=== PATIENT | male | born 1955 | race Asian ===

== ENCOUNTER 2023-04-28 14:07 | Inpatient (IN) | payer OTHER ==
[~2023-04-28] VITALS: Ht 170.2 cm; Wt 77.1 kg
[2023-04-28 14:25] VITALS: BP 86/46; PULSE 69; RESP 18; TEMP 97.8; O2SAT 95
[2023-04-28] MEDS: NACL 0.9% 1,000 ML IV ONE (15:05)
[2023-04-28] MEDS ORDERED: cefTRIAXone 1,000 MG VIAL ONE (15:11)
[2023-04-28] MEDS: NACL 0.9% 1,000 ML IV SCH (15:16)
[2023-04-28 15:21] LABS: BASOPHILS % (AUTO) 0.4 % (0.0-2.0); HEMATOCRIT 40.1 % (36-52); HEMOGLOBIN 13.5 g/dL (12.0-18.0); MEAN CORPUSCULAR HEMOGLOBIN 31 pg (27-31); MEAN CORPUSCULAR HGB CONC 34 g/dL (33-37); MEAN CORPUSCULAR VOLUME 91.9 fL (80-94); MONOCYTES # (AUTO) 1.7 K/uL (0.8-1.0); MONOCYTES % (AUTO) 18.6 % (1.7-9.3); NEUTROPHILS # (AUTO) 6.3 K/uL (1.8-7.7); PLATELET COUNT (AUTO) 184 K/uL (140-450); RED BLOOD CELL COUNT(AUTO) 4.36 MIL/uL (4.20-6.10); RED CELL DISTRIBUTION WIDTH 14.3 % (11.6-13.7)
[2023-04-28 15:36] LABS: ANION GAP 13.8 (8-16); CALCIUM 7.8 mg/dL (8.5-10.1); CARBON DIOXIDE 23.1 mmol/L (21-32); POTASSIUM 4.9 mmol/L (3.5-5.1)
[2023-04-28 15:41] LABS: INR 1.07 (0.8-1.2); PARTIAL THROMBOPLASTIN TIME 35.4 secs (22-35.6); PROTHROMBIN TIME 11.2 secs (10.8-13.4)
[2023-04-28 15:43] LABS: ALANINE AMINOTRANSFERASE 22 U/L (12-78); ALBUMIN 1.6 g/dL (3.4-5.0); ALKALINE PHOSPHATASE 40 U/L (50-136); ASPARTATE AMINOTRANSFERASE 25 U/L (15-37); BILIRUBIN,DIRECT 0.1 mg/dL (0.0-0.3); CREATINE KINASE, TOTAL 337 U/L (39-308); TOTAL BILIRUBIN 0.2 mg/dL (0.0-1.0); TOTAL PROTEIN, SERUM 3.9 g/dL (6.4-8.2)
[2023-04-28 16:08] LABS: APPEARANCE,URINE CLEAR (CLEAR); BILIRUBIN,URINE NEGATIVE (NEGATIVE); BLOOD, URINE 1+ (NEGATIVE); COLOR,URINE YELLOW (YELLOW); LEUKOCYTE ESTERASE ,URINE NEGATIVE (NEGATIVE); NITRITE, URINE NEGATIVE (NEGATIVE); PROTEIN,URINE TRACE (NEGATIVE); UGLUCOSE NEGATIVE (NEGATIVE); UROBILINOGEN,URINE 0.2 EU/dL (0.2 - 1)
[2023-04-28 16:19] LABS: RBC,URINE 0-5 /HPF (0-5)
[2023-04-28 16:20] LABS: BACTERIA,URINE 0-2 /HPF (None Seen); SQUAMOUS EPITHELIAL CELL,UR 0-3 (FEW) /LPF (0-3 (FEW)); WBC,URINE 0 /HPF (0-5)
[2023-04-28 16:21] LABS: MUCUS,URINE None Seen /LPF (None Seen)
[2023-04-28] MEDS: ASPIRIN 325 MG TAB PO ONE (19:50)
[2023-04-28] MEDS: MORPHINE SULFATE 4 MG/ML SYR IVP ONE (20:16)
[2023-04-28] MEDS ORDERED: LIP80 PO (20:44)
[2023-04-28] MEDS ORDERED: METO25TE2 PO (20:44)
[2023-04-28] MEDS ORDERED: ASPI-1749 PO (20:44)
[2023-04-28] MEDS ORDERED: CLOP75TA55 PO (20:44)
[2023-04-28] MEDS ORDERED: LISI5TAB18 PO (20:44)
[2023-04-28] MEDS ORDERED: HEPARIN PER PHARMACY MC PRN ×3 (21:10→23:00)
[2023-04-28] MEDS ORDERED: hePARIN / DEXT 5% PREMIX 250 ML IV SCH (23:00)
[2023-04-28 23:34] VITALS: PULSE 88
[2023-04-28] MEDS: hePARIN / DEXT 5% PREMIX 250 ML IV PRN (23:58)
[2023-04-29] MEDS: NACL 0.9% 1,000 ML IV SCH (00:16)
[2023-04-29] MEDS: ATORVASTATIN 80 MG TAB ONE (00:42)
[2023-04-29] MEDS: ATORVASTATIN 80 MG TAB PO ONE (00:50)
[2023-04-29 01:51] VITALS: PULSE 93; RESP 19; O2SAT 94
[2023-04-29 04:00] VITALS: BP 113/79; PULSE 113; PULSE 116; RESP 23; TEMP 99.6; O2SAT 95
[2023-04-29 06:36] LABS: ANION GAP 17.2 (8-16); CALCIUM 7.6 mg/dL (8.5-10.1); CARBON DIOXIDE 17.9 mmol/L (21-32); CREATININE 1.1 mg/dL (0.6-1.3); POTASSIUM 4.1 mmol/L (3.5-5.1)
[2023-04-29 07:31] LABS: HEMATOCRIT 40.8 % (36-52); HEMOGLOBIN 12.3 g/dL (12.0-18.0); MEAN CORPUSCULAR HEMOGLOBIN 28 pg (27-31); MEAN CORPUSCULAR HGB CONC 30 g/dL (33-37); MEAN CORPUSCULAR VOLUME 92.9 fL (80-94); PLATELET COUNT (AUTO) 191 K/uL (140-450); RED BLOOD CELL COUNT(AUTO) 4.39 MIL/uL (4.20-6.10); RED CELL DISTRIBUTION WIDTH 14.8 % (11.6-13.7); WHITE BLOOD COUNT (AUTO) 6.6 K/uL (4.8-10.8)
[2023-04-29 08:00] VITALS: BP 95/52; PULSE 108; PULSE 68; PULSE 98; RESP 18; RESP 20; TEMP 99.9; O2SAT 95; O2SAT 99
[2023-04-29 08:14] LABS: BASOPHILS % (MANUAL) 0 % (0-2); BLASTS, MANUAL % 0 % (0-0); EOSINOPHILS % (MANUAL) 2 % (0-4); LYMPHOCYTES % (MANUAL) 11 % (20-46); METAMYELOCYTES % 0 % (0-0); MONOCYTES % (MANUAL) 7 % (5-12); MYELOCYTES % 0 % (0-0); OTHER CELLS,MANUAL % 0 (0-0); PROMYELOCYTES % 0 % (0-0)
[2023-04-29 08:15] LABS: PLATELET ESTIMATE ADEQUATE
[2023-04-29] MEDS: ATORVASTATIN 80 MG TAB PO SCH (08:48)
[2023-04-29] MEDS: ASPIRIN 81 MG TAB.CHEW PO ONE (08:48)
[2023-04-29 12:00] VITALS: BP 98/59; PULSE 101; PULSE 94; RESP 18; TEMP 99.3; O2SAT 95
[2023-04-29] MEDS ORDERED: ONDANSETRON 4 MG/2 ML VIAL IVP PRN (12:25)
[2023-04-29] MEDS ORDERED: MORPHINE SULFATE 2 MG/ML SYR IVP PRN ×2 (12:25)
[2023-04-29] MEDS ORDERED: NITROGLYCERIN 0.4 MG TAB SL PRN (12:25)
[2023-04-29] MEDS ORDERED: ACETAMINOPHEN 325 MG TAB PO PRN (12:25)
[2023-04-29 13:04] LABS: CHOL/HDL RATIO 2.8 (1-4.5)
[2023-04-29] MEDS: lisinopriL 5 MG TAB PO SCH (13:44)
[2023-04-29 16:00] VITALS: BP 105/67; PULSE 93; PULSE 98; RESP 18; TEMP 99.2; O2SAT 95
[2023-04-29] MEDS: PANTOPRAZOLE 40 MG INJ VIAL IVP SCH (18:59)
[2023-04-29] MEDS: lisinopriL 5 MG TAB ONE (18:59)
[2023-04-29 20:00] VITALS: BP 125/74; PULSE 103; PULSE 105; RESP 18; TEMP 97.6; O2SAT 96
[2023-04-29] MEDS: ZOLPIDEM 5 MG TAB PO PRN (20:23)
[2023-04-29] MEDS: METOPROLOL 25 MG TAB PO SCH (20:23)
[2023-04-30] VITALS (7 sets, daily range): BP systolic 101–128; BP diastolic 60–77; PULSE 76–99; RESP 18–22; TEMP 97.7–99; O2SAT 92–97
[2023-04-30 05:59] LABS: BASOPHILS % (AUTO) 0.6 % (0.0-2.0); EOSINOPHILS % (AUTO) 0.5 % (0.0-4.0); HEMATOCRIT 38.2 % (36-52); LYMPHOCYTES # (AUTO) 1.6 K/uL (2.0-11.5); LYMPHOCYTES % (AUTO) 29.1 % (20.5-51.1); MEAN CORPUSCULAR HEMOGLOBIN 31 pg (27-31); MEAN CORPUSCULAR HGB CONC 34 g/dL (33-37); MEAN CORPUSCULAR VOLUME 90.2 fL (80-94); MONOCYTES # (AUTO) 0.9 K/uL (0.8-1.0); MONOCYTES % (AUTO) 15.9 % (1.7-9.3); NEUTROPHILS % (AUTO) 53.9 % (42.2-75.2); PLATELET COUNT (AUTO) 181 K/uL (140-450); RED BLOOD CELL COUNT(AUTO) 4.23 MIL/uL (4.20-6.10); RED CELL DISTRIBUTION WIDTH 14.2 % (11.6-13.7); WHITE BLOOD COUNT (AUTO) 5.6 K/uL (4.8-10.8)
[2023-04-30 06:29] LABS: ALBUMIN 2.6 g/dL (3.4-5.0); ANION GAP 14.3 (8-16); CALCIUM 7.9 mg/dL (8.5-10.1); CARBON DIOXIDE 20.2 mmol/L (21-32); POTASSIUM 3.5 mmol/L (3.5-5.1); TOTAL BILIRUBIN 0.3 mg/dL (0.0-1.0); TOTAL PROTEIN, SERUM 6.4 g/dL (6.4-8.2)
[2023-04-30] MEDS: ECOTRIN 81 MG TABEC PO SCH (09:27)
[2023-04-30] MEDS: ENOXAPARIN 40 MG/0.4 ML SYR SUBQ SCH (09:29)
[2023-04-30] MEDS: ALBUTEROL SULFATE/IPRATROPIU 3 ML SOL IH SCH (21:44)
[2023-05-01] VITALS (8 sets, daily range): BP systolic 105–125; BP diastolic 59–75; PULSE 79–94; RESP 18–20; TEMP 98.2–98.6; O2SAT 92–97
[2023-05-01 05:18] LABS: BASOPHILS % (AUTO) 0.5 % (0.0-2.0); EOSINOPHILS # (AUTO) 0.1 K/uL (0-0.4); EOSINOPHILS % (AUTO) 1.1 % (0.0-4.0); HEMATOCRIT 38.6 % (36-52); HEMOGLOBIN 13.3 g/dL (12.0-18.0); LYMPHOCYTES # (AUTO) 1.8 K/uL (2.0-11.5); LYMPHOCYTES % (AUTO) 33.1 % (20.5-51.1); MEAN CORPUSCULAR HEMOGLOBIN 31 pg (27-31); MEAN CORPUSCULAR HGB CONC 35 g/dL (33-37); MEAN CORPUSCULAR VOLUME 89.3 fL (80-94); MONOCYTES # (AUTO) 1.1 K/uL (0.8-1.0); MONOCYTES % (AUTO) 19.6 % (1.7-9.3); NEUTROPHILS # (AUTO) 2.5 K/uL (1.8-7.7); NEUTROPHILS % (AUTO) 45.7 % (42.2-75.2); PLATELET COUNT (AUTO) 181 K/uL (140-450); RED BLOOD CELL COUNT(AUTO) 4.32 MIL/uL (4.20-6.10); RED CELL DISTRIBUTION WIDTH 14.1 % (11.6-13.7); WHITE BLOOD COUNT (AUTO) 5.4 K/uL (4.8-10.8)
[2023-05-01 05:56] LABS: ALBUMIN 2.5 g/dL (3.4-5.0); ANION GAP 12.4 (8-16); CALCIUM 7.6 mg/dL (8.5-10.1); CARBON DIOXIDE 23.8 mmol/L (21-32); CREATININE 0.9 mg/dL (0.6-1.3); POTASSIUM 3.2 mmol/L (3.5-5.1); TOTAL BILIRUBIN 0.3 mg/dL (0.0-1.0); TOTAL PROTEIN, SERUM 7.1 g/dL (6.4-8.2)
[2023-05-01] MEDS: POTASSIUM CHLORIDE 10 MEQ TABER PO SCH (09:27)
[2023-05-01] MEDS ORDERED: AZIT250T4 PO (13:34)
== END 2023-05-01 16:26 | disposition home or self-care (01) | DRG 682 ==
LOC: MED 14:07 → MTU 22:23
PROVIDERS: ADMIT Student in an Organized Health Care Education/Training Program; ATTEND Student in an Organized Health Care Education/Training Program
DX: N17.0 Acute kidney failure with tubular necrosis (principal); G93.41 Metabolic encephalopathy; I21.A1 Myocardial infarction type 2; E86.0 Dehydration; J06.9 Acute upper respiratory infection, unspecified; E78.5 Hyperlipidemia, unspecified; I25.10 Atherosclerotic heart disease of native coronary artery without angina pectoris; I10 Essential (primary) hypertension; Z86.73 Personal history of transient ischemic attack (TIA), and cerebral infarction without residual deficits; Z79.82 Long term (current) use of aspirin; Z79.899 Other long term (current) drug therapy
CPT/HCPCS: 36415; 70450; 71045; 71275; 80048; 80053; 80076; 81001; 82550; 82553; 82948; 83036; 83605; 83721; 83880; 84484; 85025; 85379; 85610; 85730; 86886; 86900; 86901; 87040; 87081; 87086; 93005; 93880; 94640; 96365; 96375; 99285; C9113; J0696; J1644; J1650; J2270; Q0092; Q9967